=== PATIENT | female | born 1950 | race Caucasian/White ===

== ENCOUNTER 2016-12-19 08:00 | Outpatient (CLI) | payer MEDICARE ==
[2016-12-20 20:27] LABS: TEST RESULT REPORT (())
== END 2016-12-19 08:01 | disposition home or self-care (01) ==
LOC: LAB.R 08:00
PROVIDERS: ATTEND Family Medicine
DX: R19.7 Diarrhea, unspecified (principal)
CPT/HCPCS: 81599; 83630; 87045; 87046; 87177; 87209; 87329; 87493

== ENCOUNTER 2017-02-04 09:53 | Outpatient (CLI) | payer MEDICARE ==
--- NOTE | 2017-02-05 16:58 | Mammography Report ---
DIGITAL SCREENING MAMMOGRAM: 02/04/2017 CLINICAL INDICATION: A 66-year-old, for screening. COMPARISON: 01/2016, 01/2015, 01/2014, 09/2012, 08/2011, 08/2010, 08/2009. TECHNIQUE: Routine CC and MLO projections were obtained of the breasts. FINDINGS: The breasts demonstrate scattered fibroglandular densities bilaterally. Coarse, typically benign calcifications are present. No suspicious masses, clustered microcalcifications, or regions of architectural distortion are identified. IMPRESSION: BENIGN FINDINGS. RECOMMENDATION: ROUTINE ANNUAL SCREENING UNLESS OTHERWISE CLINICALLY INDICATED. BIRADS CATEGORY 2-BENIGN FINDINGS. STANDARD QUALIFYING STATEMENTS 1. This examination was reviewed with the aid of Computer-Aided Detection (CAD). 2. A negative or benign imaging report should not delay biopsy if clinically suspicious findings are present. Consider surgical consultation if warranted. More than 5% of cancers are not identified by i maging. 3. Dense breasts may obscure an underlying neoplasm. JOB #: [id number] EXT JOB #:[id number]
== END 2017-02-04 09:54 | disposition home or self-care (01) ==
LOC: DI 09:53
PROVIDERS: ATTEND Family Medicine
DX: Z12.31 Encounter for screening mammogram for malignant neoplasm of breast (principal)
CPT/HCPCS: 77067

== ENCOUNTER 2017-02-14 10:27 | Outpatient (CLI) | payer MEDICARE ==
--- NOTE | 2017-02-14 13:42 | DEXA Report ---
DEXA SCAN: 02/14/2017 CLINICAL INDICATION: Postmenopausal. TECHNIQUE: Dual energy x-ray absorptiometry (DXA) was performed on a [employer] system. Regions measured are the AP spine, femoral neck, and, if needed, forearm. COMPARISON: None. In accordance with the International Society for Clinical Densitometry (ISCD) guidelines, data from previous exams may be reanalyzed using current recommendations and techniques. This is done to allow a more accurate basis for comparison with the current study. FINDINGS The data for the lumbar spine is as follows: REGION BMD (g/cm/cm) T-SCORE Z-SCORE L1 1.072 -0.5 0.7 L2 1.157 -0.4 0.8 L3 1.098 -0.9 0.3 L4 1.119 -0.7 0.5 TOTAL 1.113 -0.6 0.6 NOTE: All evaluable vertebrae are used for classification. The data for the hip is as follows: REGION BMD (g/cm/cm) T-SCORE Z-SCORE Neck 0.949 -0.6 0.7 TOTAL 0.935 -0.6 0.5 NOTE: The femoral neck or total proximal femur, whichever is lowest, is used for classification. IMPRESSION: THE WHO CLASSIFICATION BASED ON THE INTERNATIONAL REFERENCE STANDARD IS NORMAL. THE FRACTURE RISK IS NOT INCREASED. RECOMMENDATION: Patients with diagnosis of osteoporosis or osteopenia should have regular bone mineral density assessment. For those eligible for Medicare, routine testing is allowed once every 2 years. Testing frequency can be increased for patients who have rapidly progressing disease or for those who are receiving medical therapy to restore bone mass. COMMENT: World Health Organization (WHO) definitions for osteoporosis and osteopenia: NORMAL BMD: T-score at -1.0 or higher, fracture risk is low. OSTEOPENIA BMD: T-score between -1.0 and -2.5, fracture risk is increased. OSTEOPOROSIS BMD: T-score at -2.5 or lower, fracture risk high. National Osteoporosis Foundation recommends: 1. Obtain adequate dietary calcium (at least 1200 mg per day) and vitamin D (400 -800 international units per day). 2. Participate, as appropriate, in regular weightbearing and muscle- strengthening exercise. 3. Avoid tobacco use and reduce alcohol and caffeine intake. 4. For more detailed information see the website at www.NOF.org. MTDD
== END 2017-02-14 10:28 | disposition home or self-care (01) ==
LOC: DI 10:27
PROVIDERS: ATTEND Family Medicine
DX: Z78.0 Asymptomatic menopausal state (principal)
CPT/HCPCS: 77080

== ENCOUNTER 2018-02-18 09:51 | Outpatient (CLI) | payer MEDICARE ==
--- NOTE | 2018-02-19 09:49 | Mammography Report ---
Reason: SCREENING MAMMO Procedure Date: 02/18/2018 Accession Number: [id number] / [id number] Procedure: MGN - Screening Mammo Dig Bilat CPT Code: FULL RESULT: EXAM: Screening Mammo Dig Bilat DATE: 02/18/2018 10:09 AM CLINICAL HISTORY: 67-year-old female with history of early menses. TECHNIQUE: Bilateral CC and MLO views were obtained. COMPARISON: 02/04/2017, 01/30/2016, 01/12/2015, 01/14/2014. FINDINGS: The breasts demonstrate scattered fibroglandular densities bilaterally. Coarse typically benign calcifications are again seen bilaterally. No suspicious masses, clustered microcalcifications, or regions of architectural distortion are identified. IMPRESSION: Benign findings RECOMMENDATION: Routine annual screening unless otherwise clinically indicated. BIRADS CATEGORY 2: Benign findings STANDARD QUALIFYING STATEMENTS: 1. This examination was reviewed with the aid of Computer-Aided Detection (CAD). 2. A negative or benign imaging report should not delay biopsy if clinically suspicious findings are present. Consider surgical consultation if warrented. More than 5% of cancers are not identified by imaging. 3. Dense breasts may obscure an underlying neoplasm. 4. This examination was reviewed without the aid of 3D breast imaging (tomosynthesis).
== END 2018-02-18 09:52 | disposition home or self-care (01) ==
LOC: DI.N 09:51
DX: Z12.31 Encounter for screening mammogram for malignant neoplasm of breast (principal)
CPT/HCPCS: 77067

== ENCOUNTER 2018-11-10 13:50 | Outpatient (CLI) | payer MEDICARE ==
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
== END 2018-11-10 13:51 | disposition home or self-care (01) ==
LOC: DI.WCP 13:50
PROVIDERS: ATTEND Family Medicine
DX: S16.1XXA Strain of muscle, fascia and tendon at neck level, initial encounter (principal); M50.321 Other cervical disc degeneration at C4-C5 level
CPT/HCPCS: 72040

== ENCOUNTER 2018-11-10 13:51 | Outpatient (CLI) | payer MEDICARE ==
--- NOTE | 2018-11-11 09:47 | XRAY Report ---
Reason: BACK PAIN,THORACIC REGION Procedure Date: 11/10/2018 Accession Number: [id number] / [id number] Procedure: WCP - Thoracic Spine 2 View CPT Code: FULL RESULT: EXAM: THORACIC SPINE RADIOGRAPHY EXAM DATE: 11/10/2018 02:10 PM. CLINICAL HISTORY: Back pain, thoracic region. COMPARISON: None. TECHNIQUE: 2 views. FINDINGS: Alignment: Mid and lower thoracic dextroconvexity and mild upper thoracic levoconvex curvature. No significant listhesis. Bones: No fractures or bone lesions. Disks: Mild multilevel disk space narrowing. Mild to moderate multilevel vertebral body spurring including some lateral bridging ossification/spurring on the left at T11 to L1. Soft Tissues: Aortic calcifications. The visualized lungs and cardiomediastinal silhouette are normal. IMPRESSION: 1. No definite acute abnormality. 2. Degenerative and chronic changes, as above. RADIA
== END 2018-11-10 13:52 | disposition home or self-care (01) ==
LOC: DI.WCP 13:51
PROVIDERS: ATTEND Family Medicine
DX: M51.35 Other intervertebral disc degeneration, thoracolumbar region (principal); M46.05 Spinal enthesopathy, thoracolumbar region; S16.1XXA Strain of muscle, fascia and tendon at neck level, initial encounter; M50.321 Other cervical disc degeneration at C4-C5 level
CPT/HCPCS: 72040; 72070

== ENCOUNTER 2019-03-30 13:45 | Outpatient (CLI) | payer MEDICARE ==
--- NOTE | 2019-03-31 13:02 | XRAY Report ---
Reason: LEFT ANKLE PAIN Procedure Date: 03/30/2019 Accession Number: [id number] / [id number] Procedure: WCP - Ankle 3 View LT CPT Code: Final Report FULL RESULT: EXAM: LEFT ANKLE RADIOGRAPHY EXAM DATE: 03/30/2019 01:45 PM HISTORY: LEFT ANKLE PAIN COMPARISON: NONE TECHNIQUE: AP, lateral and oblique, 3 views FINDINGS: Positive for oblique fracture through the distal aspect of the fibular diaphysis extending to just above the ankle mortise level. Mild distraction. No other fracture deformity. Symmetric ankle mortise. Small dorsal and plantar calcaneal spurs noted. No joint effusion. Mild lateral soft tissue swelling. IMPRESSION: Oblique distal fibular fracture, acute or subacute. RADIA
== END 2019-03-30 23:59 | disposition home or self-care (01) ==
LOC: DI.WCP 13:45
PROVIDERS: ATTEND Family Medicine
DX: S82.832A Other fracture of upper and lower end of left fibula, initial encounter for closed fracture (principal)

== ENCOUNTER 2020-12-08 12:46 | Outpatient (CLI) | payer MEDICARE ==
[2020-12-08 13:40] VITALS: BP 148/85
--- NOTE | 2020-12-08 13:40 | SLEEP CARE CONSULTATION ---
Information from patient questionnaire entered by Pam Anaya. I have reviewed and concur with the information entered by Pam Anaya. This document represents the service I personally performed and the decisions made by me, Crys Cooper ARNP. History of Present Illness Service Date and Time: 12/08/2020 1246 Reason for Visit: New patient Chief Complaint: reports: Unrefreshed sleep, Snoring, Frequent awakenings at night, Other (Update supplies) Date of Onset: Worse during pandemic - otherwise 5 years? Usual bedtime: 10 PM Time it takes to fall asleep: 15 min Snores at night: Yes Observed to quit breathing while asleep: No Sleeps alone due to snoring: No Number of times waking at night: 1-2 Reasons for waking at night: reports: Pain, Bathroom, Other (Worry after waking) Toss, Turn, or Twitch while sleeping: Yes Recalls having dreams: Yes Usually gets out of bed at: 7:30 Feels refreshed in the morning: No Morning headache: No Sleepy or fatigued during the day: No (Unless BP high) Ever fallen asleep while driving: No Takes day naps: No Prior sleep studies: Yes Year and Where: 07/06/20 [facility]) Additional HPI information: JEREMY PUGA was previously diagnosed to have moderate, AHI 20.9, obstructive sleep apnea-hypopnea syndrome and comes in today to establish care for her CPAP therapy. Her last study was done on 07/06/2020 at [facility] in [place]. She started using her CPAP on November 06, 2020. She is here for her first compliance followup. - Parasomnia Symptoms Ever been unable to move upon waking from sleep: No Walks in sleep: No Talks in sleep: Yes Ever acted out dreams in sleep: No Ever felt weak in the knees when startled or emotional: Yes Bothered by creepy, crawly, restless sensations in legs: No Problems with memory or concentration: Yes (Occasionally) CPAP Compliance Data - Data Reviewed with Patient Average duration of nightly device use: 8 h 35 min Compliance rate %: 100 Current pressure setting (cmH2O): 4-20 (median 5.8, avg 8.4, max 10.1) Average residual AHI: 1.3 Central apnea: 0.5 Obstructive apnea: 0.3 Compliance data discussion: She is getting her supplies from [employer]. She is using an AirFit P10, used Aquafor on nasal skin irritation and resolved. She then started using a Dreamwear Wisp which she likes the headgear better than the AirFit P10. She wants to try a nasal cushion when she is eligible for a new mask. Subjective Patient concerns: reports: aerophagia (did have it a little, turned down ramp time and it helped with gulping air), dry mouth, nose, throat (little dry mouth). denies: mask discomfort, air blowing in eyes, mask leak noise, condensation in mask/hose, nasal congestion, epistaxis, other Observed to snore while using device: No Current pressure setting perceived as: comfortable On therapy, patient: reports: sleeping better, awakening more refreshed, being more awake and alert during the day, more rested overall, other (blood pressure improved in mornings). 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 Patient is and lives in [place]. Have you smoked in the past 12 months: No Cigarettes per day (20/pack): 10 Years of smokin Quit date: 1974 Smoking Pack Years: 2.5 Alcohol use: No Caffeine use: No Family History Family history of sleep disordered breathing: Yes Family Hx Sleep Apnea: Father: Sleep apnea - Untreated, Sibling: Sleep apnea - Treated Allergies and Home Medications Drug allergies reviewed: Yes (Penicillins) Home medication list reviewed: Yes Allergy and home medication list: Amlodipine Olmesartan HCTZ Atenolol Simvastatin (or Atorvastatin) Review of Systems Cardiovascular: reports: high blood pressure Gastrointestinal: denies: heartburn Neurological: denies: headaches Psychiatric: denies: anxiety, depression Ear/Nose/Throat: reports: dry mouth/throat, wisdom teeth removed. denies: tonsillectomy Endocrine: reports: too hot or cold, excessive thirst. denies: thyroid disease Musculoskeletal: reports: joint pain (stiffness left knee), joint swelling Physical Exam Blood Pressure: 148/85 Cuff size: long Heart Rate: 59 O2 Saturation: 98 Height: 5 ft 5 in Weight: 174 lb Body Mass Index: 28.9 BMI Classification: Overweight Heart: regular rate and rhythm Lungs: clear bilaterally Impression and Plan 1. Obstructive Sleep Apnea-Hypopnea Syndrome, moderate, with excellent treatment compliance and good apnea control. On CPAP therapy, the patient has better sleep quality and is more rested overall. She has been getting a little mouth dryness in the morning. She had some bloating in the morning but called her sleep provider in [place] and was advised to increase the ramp pressure and reduce oral venting which resolved her issue. Oral dryness can be reduced by adjusting humidity setting higher or heated hose lower or by adjusting both settings. Verbal instructions given on how to change humidity and heated hose settings with rationale explaining why to change. I will adjust patient's pressure to reflect those pressures she is using. The patients pressure will be changed to autoCPAP 6-10 cmH20. Patient advised to contact me if pressure change is uncomfortable so that it can be adjusted. Goals for apnea control discussed. Patient's apnea severity and rationale for treatment to reduce apnea, improve sleep quality and reduce cardiovascular and cerebrovascular events was reviewed. I also reviewed the benefit of consistent device use of CPAP for hypertension. Patient encouraged to try to lose weight to improve her overall health. * Change auto CPAP pressure to 6-10 cmH2O * Notify me if snoring with mask or feeling that the pressure is too much or too little * Attempt to lose weight * Call this office if any problems using CPAP * Return for follow up in 1-2 months, or sooner if concerns arise Counseling Topics: Spare mask, Weight loss health impact Visit Type: In Office Time Spent with Patient (minutes): 38 Provider Statement: I spent 100% of the Face to Face Visit with the patient with greater than 50% spent counseling the patient and coordination of care.
== END 2020-12-08 12:47 | disposition home or self-care (01) ==
LOC: SC 12:46
PROVIDERS: ATTEND Nurse Practitioner Family
DX: G47.33 Obstructive sleep apnea (adult) (pediatric) (principal)
CPT/HCPCS: 99203; G0463; 99212

== ENCOUNTER 2021-01-23 12:49 | Outpatient (CLI) | payer MEDICARE ==
[2021-01-23 13:22] VITALS: BP 154/89
--- NOTE | 2021-01-23 13:22 | SLEEP CARE CONSULTATION ---
Information from patient questionnaire entered by Beatrice Aparicio. I have reviewed and concur with the information entered by Beatrice Aparicio. This document represents the service I personally performed and the decisions made by , Crys Cooper ARNP. History of Present Illness Service Date and Time: 01/23/2021 1249 Previous diagnosis: Moderate, Obstructive Sleep Apnea-Hypopnea Syndrome AHI: 29.0 (in 2020) Reason for follow up: other (6 week with pressure change) Equipment type: CPAP Equipment obtained from: [facility] (getting supplies as needed) Mask style: Nasal Mask brand: Resmed ([id number] - best) Backup mask available: Yes (old mask) Last cushion change: 1 day ago Prior [facility]: Yes [facility] additional information: JEREMY PUGA was diagnosed to have moderate, AHI 29.0, obstructive sleep apnea-hypopnea syndrome and returned today for CPAP therapy 6 week pressure change follow-up. CPAP Compliance Data - Data Reviewed with Patient Average duration of nightly device use: 9 hr 4 in Compliance rate %: 100 Current pressure setting (cmH2O): 6-10 Humidity settin Average residual AHI: 0.8 Subjective Patient concerns: reports: dry mouth, nose, throat (not bad). denies: aerophagia, mask discomfort, air blowing in eyes, mask leak noise, condensation in mask/hose, nasal congestion, epistaxis, other Observed to snore while using device: No Current pressure setting perceived as: comfortable On therapy, patient: reports: sleeping better, awakening more refreshed, being more awake and alert during the day, more rested overall. denies: drowsiness while driving Initial [place] Sleepiness Scale score: 5 (in 2020) Current [place] Sleepiness Scale score: 3 Allergies and Home Medications Home medication list reviewed: Yes (no changes) Review of Systems Review of systems same as previous: Yes (no changes) Physical Exam Blood Pressure: 154/89 (anxious today) Cuff size: long Heart Rate: 74 O2 Saturation: 97 Height: 5 ft 5 in Weight: 171 lb Weight change since last visit: 3 lb loss Body Mass Index: 28.4 BMI Classification: Overweight Impression and Plan 1. Obstructive Sleep Apnea-Hypopnea Syndrome, moderate, with excellent treatment compliance and good apnea control. On CPAP therapy, the patient has better sleep quality and is more rested overall. Patient is very satisfied with current treatment and feels the pressure is comfortable. Patient has lost weight. Currently patients BMI is 28.4. Obesity increases the risk of apnea, CPAP pressure requirements and overall health risks especially cardiovascular and diabetes. Thus patient is advised to continue to lose weight. Patient has been watching what she eats and walking every day. The patient's CPAP pressure range should accommodate some weight loss. Symptoms to report for additional pressure adjustment discussed. Patient's apnea severity and rationale for treatment to reduce apnea, improve sleep quality and reduce cardiovascular and cerebrovascular events was reviewed. I also reviewed the benefit of consistent device use of CPAP for hypertension. * Continue auto CPAP pressure at 6-10 cmH2O * Notify me if snoring with mask or feeling that the pressure is too much or too little * Continue to try to lose weight * Call this office if any problems using CPAP * Return for follow up in 3 months, or sooner if concerns arise Counseling Topics: Spare mask, Weight loss health impact Visit Type: In Office Time Spent with Patient (minutes): 21 Provider Statement: I spent 100% of the Face to Face Visit with the patient with greater than 50% spent counseling the patient and coordination of care.
== END 2021-01-23 12:50 | disposition home or self-care (01) ==
LOC: SC 12:49
PROVIDERS: ATTEND Nurse Practitioner Family
DX: G47.33 Obstructive sleep apnea (adult) (pediatric) (principal)
CPT/HCPCS: 99213; G0463; 99212

== ENCOUNTER 2021-04-27 11:00 | Outpatient (CLI) | payer MEDICARE ==
--- NOTE | 2021-04-27 11:21 | SLEEP CARE CONSULTATION ---
Information from patient questionnaire entered by Pauline Goodman MA. I have reviewed and concur with the information entered by Pauline Goodman MA. This document represents the service I personally performed and the decisions made by , Crys Cooper ARNP. History of Present Illness Service Date and Time: 04/27/2021 1100 Previous diagnosis: Moderate, Obstructive Sleep Apnea-Hypopnea Syndrome AHI: 29.0 (in 2020) Reason for follow up: three month Equipment type: CPAP Equipment obtained from: [facility] (getting supplies as needed) Mask style: Nasal Backup mask available: Yes (old mask) Last cushion change: yesterday Prior sleep studies: Yes Year and Where: 2020 - in [facility] additional information: JEREMY PUGA was diagnosed to have moderate, AHI 29.0, obstructive sleep apnea-hypopnea syndrome and returns via video telehealth visit today with spouse for CPAP therapy three month follow-up. Sleep Study - Results Prior sleep studies: Yes Year and Where: 2020 in [place], [place] CPAP Compliance Data - Data Reviewed with Patient Average duration of nightly device use: 8 HOURS 36 MINUTES Compliance rate %: 95 Current pressure setting (cmH2O): 6-10 Average residual AHI: 0.8 Central apnea: .3 Obstructive apnea: .2 Subjective Patient concerns: reports: dry mouth, nose, throat. denies: aerophagia, mask discomfort, air blowing in eyes, mask leak noise, condensation in mask/hose, nasal congestion, epistaxis, other Observed to snore while using device: No Current pressure setting perceived as: comfortable On therapy, patient: reports: sleeping better, awakening more refreshed, being more awake and alert during the day, more rested overall. denies: drowsiness while driving Initial [place] Sleepiness Scale score: 5 (in 2020) Current [place] Sleepiness Scale score: 3 Allergies and Home Medications Home medication list reviewed: Yes (no changes) Review of Systems Review of systems same as previous: Yes (no changes) Physical Exam Vital signs obtained and entered by: Telehealth visit to reduce exposure during Covid pandemic Height: 5 ft 5 in Impression and Plan 1. Obstructive Sleep Apnea-Hypopnea Syndrome, moderate, with good treatment compliance and good apnea control. On CPAP therapy, the patient has better sleep quality and is more rested overall. Patient is satisfied with current CPAP therapy and has significant improvement of her apneas. She states she is sleeping better and has less anxiety overall. She occasionally gets some dry mouth. Oral dryness can be reduced by adjusting humidity setting higher or heated hose lower or by adjusting both settings. Verbal instructions given on how to change humidity and heated hose settings with rationale explaining why to change. Patient's apnea severity and rationale for treatment to reduce apnea, improve sleep quality and reduce cardiovascular and cerebrovascular events was reviewed. I also reviewed the benefit of consistent device use of CPAP for hypertension. Patient was encouraged to lose weight for their overall health and to reduce apneas. * Continue auto CPAP pressure at 6-10 cmH2O * Notify me if snoring with mask or feeling that the pressure is too much or too little * Attempt to lose weight * Call this office if any problems using CPAP * Return for follow up in 6 months, or sooner if concerns arise Counseling Topics: Spare mask, Weight loss health impact Visit Type: Telehealth Video Video Type: VSee Patient Location: [place] Location of Provider: Office Patient agrees and consents to this telehealth visit type: Yes Patient agrees to have their insurance billed: Yes Time Spent with Patient (minutes): 20 Provider Statement: I spent 100% of the Telehealth Video Call with the patient with greater than 50% spent counseling the patient and coordination of care.
== END 2021-04-27 11:01 | disposition home or self-care (01) ==
LOC: SC 11:00
PROVIDERS: ATTEND Nurse Practitioner Family
DX: G47.33 Obstructive sleep apnea (adult) (pediatric) (principal)

== ENCOUNTER 2021-11-16 11:25 | Outpatient (CLI) | payer MEDICARE ==
[2021-11-16 12:05] VITALS: BP 123/74
--- NOTE | 2021-11-16 12:05 | SLEEP CARE CONSULTATION ---
Information from patient questionnaire entered by Pauline Goodman MA. I have reviewed and concur with the information entered by Pauline Goodman MA. This document represents the service I personally performed and the decisions made by , Crys Cooper ARNP. History of Present Illness Service Date and Time: 11/16/2021 1125 Previous diagnosis: Moderate, Obstructive Sleep Apnea-Hypopnea Syndrome AHI: 29.0 (in 2020) Reason for follow up: first compliance, other (7 MTH F/U, RESMED, CM 11/06/20) Equipment type: CPAP Equipment obtained from: [employer] (getting supplies as needed) Mask style: Nasal Mask brand: Resmed (Airfit) Backup mask available: Yes (old mask) Last cushion change: 5 days ago Prior sleep studies: Yes Year and Where: 2020 - in [facility] additional information: JEREMY PUGA was diagnosed to have moderate, AHI 29.0, obstructive sleep apnea-hypopnea syndrome and returned today for CPAP therapy first compliance follow-up. Sleep Study - Results Prior sleep studies: Yes Year and Where: 2020 - in [place], [place] CPAP Compliance Data - Data Reviewed with Patient Average duration of nightly device use: 8 HOURS 5 MINUTES Compliance rate %: 100 (90 days; 90/90 days used) Current pressure setting (cmH2O): 6-10 Average residual AHI: 1.2 Central apnea: .2 Obstructive apnea: .6 Hypopnea: .3 Average large leak: .8 Subjective Patient concerns: reports: dry mouth, nose, throat (some). denies: aerophagia, mask discomfort, air blowing in eyes, mask leak noise, condensation in mask/hose, nasal congestion, epistaxis, other Observed to snore while using device: No Current pressure setting perceived as: comfortable On therapy, patient: reports: sleeping better, awakening more refreshed, being more awake and alert during the day, more rested overall. denies: drowsiness while driving Initial [place] Sleepiness Scale score: 5 (in 2020) Current [place] Sleepiness Scale score: 3 Allergies and Home Medications Home medication list reviewed: Yes (Benicar 40 mg a day, increased by 20 mg; stopped Amlodipine) Allergy and home medication list: Allergies Penicillins Allergy (Intermediate, Verified 07/21/13 14:22) Rash Had Keflex and had joint pain and rash 2002. Review of Systems Review of systems same as previous: Yes (no changes) Physical Exam Vital signs obtained and entered by: PORTIA LEE Blood Pressure: 123/74 (RESP, PULSE 58, LEFT) Cuff size: wrist Heart Rate: 64 O2 Saturation: 97 (PAPER MASK) Height: 5 ft 5 in Weight: 175 lb 8 oz (CLOTHES) Weight change since last visit: LOSING WEIGHT, PORTIONS AND DIET OF HEALTH VEG/FRUIT, Body Mass Index: 29.2 BMI Classification: Overweight Impression and Plan 1. Obstructive Sleep Apnea-Hypopnea Syndrome, moderate, with excellent treatment compliance and good apnea control. On CPAP therapy, the patient has better sleep quality and is more rested overall. Patient has been having some dry mouth. She did increase her humidity on her machine but got condensation so she turned it back down. I advised her that she could use a heated hose to reduce condensation. Patient advised that chronic oral dryness can affect dental health. Patient states she does not have one and I will order one for her. Patient's apnea severity and rationale for treatment to reduce apnea, improve sleep quality and reduce cardiovascular and cerebrovascular events was reviewed. I also reviewed the benefit of consistent device use of CPAP for hypertension. Patient is overweight with a BMI of 29.2 and I encouraged her to try to lose weight. Patient has bought a house in [place] and will be moving down there in January. I encouraged her to establish with a sleep provider down there for her care. She voiced understanding and agreement. * Continue auto CPAP pressure at 6-10 cmH2O * Script for heated hose * Notify me if snoring with mask or feeling that the pressure is too much or too little * Attempt to lose weight * Call this office if any problems using CPAP * Return for follow up in 1 year, or sooner if concerns arise Counseling Topics: Spare mask, Weight loss health impact Visit Type: In Office Time Spent with Patient (minutes): 22 Provider Statement: I spent 100% of the Face to Face Visit with the patient with greater than 50% spent counseling the patient and coordination of care.
== END 2021-11-16 11:26 | disposition home or self-care (01) ==
LOC: SC 11:25
PROVIDERS: ATTEND Nurse Practitioner Family
DX: G47.33 Obstructive sleep apnea (adult) (pediatric) (principal); Z68.29 Body mass index [BMI] 29.0-29.9, adult; E66.3 Overweight
CPT/HCPCS: 99213; G0463; 99212

== ENCOUNTER 2021-11-28 08:00 | Outpatient (CLI) | payer MEDICARE ==
[2021-11-28 12:20] LABS: BILIRUBIN,URINE NEGATIVE (NEGATIVE); GLUCOSE, URINE (UA) NEGATIVE (NEGATIVE); KETONES,URINE (UA) NEGATIVE (NEGATIVE); LEUKOCYTE ESTERASE, URINE SMALL (NEGATIVE); NITRITE,URINE NEGATIVE (NEGATIVE); OCCULT BLOOD,URINE MODERATE (NEGATIVE); PH,URINE 6.5 PH (5.0-7.5); PROTEIN,URINE NEGATIVE (NEGATIVE); UROBILINOGEN,URINE 0.2 (NORMAL) E.U./dL (NORMAL)
[2021-11-28 12:24] LABS: CLARITY,URINE CLOUDY (CLEAR)
[2021-11-28 12:29] LABS: SQUAMOUS EPITHELIAL CELL,UR FEW Squamous (<= Few); WBC,URINE >25 /HPF (0-5)
[2021-11-28 12:30] LABS: BACTERIA,URINE Few /HPF (None Seen)
== END 2021-11-28 23:59 | disposition home or self-care (01) ==
LOC: LAB.R 08:00
PROVIDERS: ATTEND Nurse Practitioner
DX: N39.0 Urinary tract infection, site not specified (principal)
CPT/HCPCS: 81001; 87086; 87181

== ENCOUNTER 2022-01-29 14:17 | Outpatient (CLI) | payer MEDICARE ==
--- NOTE | 2022-01-29 15:18 | DEXA Report ---
PROCEDURE: Dexa Spine and/or Hip INDICATIONS: POST MENOPAUSAL TECHNIQUE: Dual energy x-ray absorptiometry (DXA) was performed on a CamioCam System. Regions measur ed are the AP Spine, femoral neck, and if needed forearm. COMPARISON: DEXA 02/14/2017 FINDINGS: Lumbar Spine: Bone Mineral Density 1.094 g/cm/cm,T score -0.7, compared to -0.6 Left Hip: Bone Mineral Density 0.849 g/cm/cm,T score -1.3, compared to -0.6 Left Femoral Neck: Bone Mineral Density 0.849 g/cm/cm, T score 1.5, compared to -0.6 (T score greater or equal to -1.0: NORMAL) (T score from -1.1 to -2.4: OSTEOPENIA) (T score less than or equal to -2.5 to: OSTEOPOROSIS) Impression: Mild osteopenia within the left hip and femoral neck, new compared to prior exam. Patients with diagnosis of osteoporosis or osteopenia should have regular bone mineral density assess ment. For those eligible for Medicare, routine testing is allowed once every 2 years. Testing frequ ency can be increased for patients who have rapidly progressing disease or for those who are receivin g medical therapy to restore bone mass. Reviewed by: Cierra Mckinnon MD on 01/29/2022 3:17 PM PDT Approved by: Cierra Mckinnon MD on 01/29/2022 3:17 PM PDT Station ID: [id number]
== END 2022-01-29 14:18 | disposition home or self-care (01) ==
LOC: DI 14:17
PROVIDERS: ATTEND Physician Assistant
DX: M85.89 Other specified disorders of bone density and structure, multiple sites (principal); Z78.0 Asymptomatic menopausal state